=== PATIENT | female | born 1935 | race African-American/Black ===

== ENCOUNTER 2017-03-21 23:12 | Emergency (ER) | payer MEDICARE, OTHER ==
[~2017-03-21] VITALS: Ht 167.6 cm; Wt 79.4 kg
[~2017-03-21 23:12] MED LIST: GABAPENTIN300 MG ORAL; IBUPROFEN600 MG ORAL; LISINOPRIL20 MG ORAL; NAPROXEN25 G1; NORCO 5-325 TA1 EAC1 ORAL; TOUJEO SOL300 UNIT/1 SQ; TRAMADOL HCL50 MG ORAL
[2017-03-22 00:05] VITALS: BP 145/64
[2017-03-22] MEDS ORDERED: KEFLEX500 MG ORAL (00:14)
[2017-03-22] MEDS ORDERED: RANITIDINE HCL150 MG ORAL (00:14)
[2017-03-22] MEDS ORDERED: BENADRYL25 MG ORAL (00:14)
[2017-03-22 00:20] VITALS: BP 145/64
--- NOTE | 2017-03-22 05:51 | Emergency Room Report ---
History of Present Illness General Chief Complaint: Animal Bite Source: Patient Present Illness HPI Patient present with complaints of insect bite to the left foot she reports ongoing for the past several days As she is a diabetic patient was concerned Denies any other pain the area does however feel itchy Denies any calf pain or swelling Denies any fevers or chills Allergies: Coded Allergies: No Known Allergies (Unverified , 12/11/15) Patient History Past Medical History: see triage record Pertinent Family History: none Last Menstrual Period: Menopause Now: No Reviewed Nursing Documentation: PMH: Agreed, PSxH: Agreed Nursing Documentation-PMH Past Medical History: No History, Except For Hx Hypertension: Yes Hx Diabetes: Yes Review of Systems All Other Systems: negative except mentioned in HPI Physical Exam Vital Signs Date Time Temp Pulse Resp B/P Pulse Ox O2 Delivery O2 Flow Rate FiO2 03/21/17 23:52 97.9 80 16 149/62 100 03/22/17 00:05 Room Air Sp02 EP Interpretation: reviewed, normal General Appearance: well appearing, no apparent distress Head: normocephalic, atraumatic Eyes: bilateral eye EOMI, bilateral eye PERRL ENT: hearing grossly normal, normal pharynx, TMs + canals normal, uvula midline Neck: full range of motion, supple, no meningismus, no bony tend Respiratory: lungs clear, normal breath sounds, no rhonchi, no respiratory distress, no retraction, no accessory muscle use Cardiovascular #1: normal peripheral pulses, regular rate, rhythm, no edema, no gallop, no JVD, no murmur Gastrointestinal: normal bowel sounds, non tender, soft, no mass, no organomegaly, non-distended, no guarding, no hernia, no pulsatile mass, no rebound Genitourinary: no CVA tenderness Musculoskeletal: normal inspection Neurologic: oriented x3, responsive, dental floss packer III-XII nml as tested, motor strength/ tone normal, sensory intact Psychiatric: mood/affect normal Skin: other - 2 small raised areas in the left dorsal foot, mild surrounding erythema no obvious fluctuance, neurovascularly intact Lymphatic: normal inspection, no adenopathy Medical Decision Making Diagnostic Impression: Primary Impression: insect bite ER Course Evidence of insect bite with very early possible mild cellulitis development given the patient's diabetic status antibiotic coverage was initiated and patient stable for initial conservative outpatient trial Last Vital Signs Date Time Temp Pulse Resp B/P Pulse Ox O2 Delivery O2 Flow Rate FiO2 03/22/17 00:20 98.0 84 16 145/64 100 Room Air Status: improved Disposition: HOME, SELF-CARE Condition: Stable Scripts Ranitidine Hcl* (ZANTAC*) 150 Mg Tablet 150 MG ORAL TWICE A DAY, #20 TAB Prov: JASON LAGUERRE D.O. 03/22/17 Diphenhydramine Hcl* (BENADRYL*) 25 Mg Capsule 25 MG ORAL Q6H Y for Itching for 5 Days, CAP Prov: JASON LAGUERRE D.O. 03/22/17 Cephalexin* (KEFLEX*) 500 Mg Capsule 500 MG ORAL Q8HR, #15 CAP 0 Refills Prov: JASON LAGUERRE D.O. 03/22/17 Referrals: [facility],REFERRING (PCP) Patient Instructions: Insect Bite Additional Instructions: Patient is provided with the discharge instructions notified to follow up with primary doctor in the next 2-3 days otherwise return to the er with any worsening symptoms. Please note that this report is being documented using [employer] technology. This can lead to erroneous entry secondary to incorrect interpretation by the dictating instrument. JASON LAGUERRE D.O. Mar 22, 2017 05:51
== END 2017-03-22 00:20 | disposition home or self-care (01) ==
LOC: EMR 23:59
DX: S90.862A Insect bite (nonvenomous), left foot, initial encounter (principal); W57.XXXA Bitten or stung by nonvenomous insect and other nonvenomous arthropods, initial encounter; Y92.89 Other specified places as the place of occurrence of the external cause; I10 Essential (primary) hypertension; E11.9 Type 2 diabetes mellitus without complications
CPT/HCPCS: 99284